=== PATIENT | female | born 1995 | race African-American/Black ===

== ENCOUNTER 2016-09-01 18:16 | Emergency (ER) | payer OTHER ==
[~2016-09-01] VITALS: Ht 170.2 cm; Wt 57.0 kg
[2016-09-02 00:15] LABS: BASOPHILS % 0.8 % (0.0-2.0); EOSINOPHILS % 1.3 % (0.0-5.0); HEMATOCRIT. 38.4 % (36.0-48.0); HEMOGLOBIN. 12.7 g/dL (12.0-16.0); LYMPHOCYTES % 32.8 % (20.0-50.0); MEAN CORPUSCULAR HEMOGLOBIN 29.8 pg (28.0-32.0); MEAN CORPUSCULAR VOLUME 89.9 fL (81.0-99.0); MEAN PLATELET VOLUME 7.9 fl (7.4-10.4); MONOCYTES % 8.2 % (2.0-8.0); NEUTROPHILS % 56.9 % (40.0-76.0); PLATELET 233 x1000/uL (130-400); RED BLOOD CELL COUNT 4.27 mill/uL (4.2-5.4); RED CELL DISTRIBUTION WIDTH 15.2 % (11.6-14.6)
[2016-09-02] MEDS ORDERED: SODIUM CHLORIDE 0.9% 1,000 ML IV ONE (00:30)
[2016-09-02] MEDS ORDERED: KETOROLAC 30MG/ML VIAL IV ONE (00:30)
[2016-09-02] MEDS ORDERED: KETOROLAC 60MG/2ML VIAL IM ONE (00:30)
[2016-09-02 01:04] LABS: CLARITY URINE CLEAR (CLEAR); COLOR URINE YELLOW (YELLOW); GLUCOSE URINE NEGATIVE (NEGATIVE); KETONES URINE NEGATIVE (NEGATIVE); LEUKOCYTE ESTERASE URINE 2+ (NEGATIVE); NITRITE URINE NEGATIVE (NEGATIVE); OCCULT BLOOD URINE NEGATIVE (NEGATIVE); PH URINE 6.5 (4.5-8.0); PROTEIN URINE NEGATIVE (NEGATIVE); SPECIFIC GRAVITY URINE 1.022 (1.005-1.030)
[2016-09-02] MEDS ORDERED: DICYCLOMINE HCL 10MG CAPSULE PO ONE (01:30)
[2016-09-02] MEDS ORDERED: MAGNESIUM CITRATE 300ML SOLUTION PO ONE (01:30)
[2016-09-02 03:15] VITALS: BP 119/66
== END 2016-09-02 03:15 | disposition home or self-care (01) ==
LOC: ER 18:16
DX: K59.00 Constipation, unspecified (principal); J45.909 Unspecified asthma, uncomplicated; F17.200 Nicotine dependence, unspecified, uncomplicated
CPT/HCPCS: 36415; 74000; 81001; 81025; 85025; 96361; 96374; 99285; J1885; J7030; Z7610

== ENCOUNTER 2019-03-14 20:11 | Emergency (ER) | payer OTHER ==
[~2019-03-14] VITALS: Ht 167.6 cm; Wt 78.0 kg
[2019-03-15] MEDS ORDERED: IPRATROPIUM BROMIDE (0.02%) 0.5MG/2.5ML NEB HHN STA (03:55)
[2019-03-15] MEDS ORDERED: ACETAMINOPHEN 325MG TABLET PO STA (03:55)
[2019-03-15] MEDS ORDERED: ALBUTEROL (0.083%) 2.5MG/3ML NEB HHN STA (03:55)
[2019-03-15] MEDS ORDERED: METHYLPREDNISOLONE SOD SUCC 125 MG/2 ML VIAL IM SCH (05:30)
[2019-03-15 06:18] LABS: CLARITY URINE CLOUDY (CLEAR); COLOR URINE YELLOW (YELLOW); KETONES URINE NEGATIVE (NEGATIVE); LEUKOCYTE ESTERASE URINE 2+ (NEGATIVE); NITRITE URINE NEGATIVE (NEGATIVE); OCCULT BLOOD URINE 3+ (NEGATIVE); PH URINE 5.5 (4.5-8.0); PROTEIN URINE NEGATIVE (NEGATIVE); SPECIFIC GRAVITY URINE 1.021 (1.005-1.030)
[2019-03-15 06:30] VITALS: BP 138/84
== END 2019-03-15 07:12 | disposition home or self-care (01) ==
LOC: ER 20:11
DX: J20.9 Acute bronchitis, unspecified (principal); M54.9 Dorsalgia, unspecified; N39.0 Urinary tract infection, site not specified; N92.1 Excessive and frequent menstruation with irregular cycle; J45.909 Unspecified asthma, uncomplicated; Z87.891 Personal history of nicotine dependence
CPT/HCPCS: 71045; 81003; 96372; 99284; J2930; J7611; Z7610

== ENCOUNTER 2019-04-20 15:42 | Emergency (ER) | payer OTHER ==
[~2019-04-20] VITALS: Ht 167.6 cm; Wt 74.8 kg
[2019-04-20 15:54] VITALS: BP 107/72
== END 2019-04-20 19:11 | disposition left against medical advice (07) ==
LOC: ER 15:42
DX: Z53.21 Procedure and treatment not carried out due to patient leaving prior to being seen by health care provider (principal); J45.909 Unspecified asthma, uncomplicated

== ENCOUNTER 2020-07-05 03:08 | Emergency (ER) | payer MEDICAID, OTHER ==
[~2020-07-05] VITALS: Ht 167.6 cm; Wt 73.0 kg
[2020-07-05] MEDS ORDERED: SODIUM CHLORIDE 0.9% 1,000 ML IV ONE (04:15)
[2020-07-05 04:27] LABS: BASOPHILS % 0.7 % (0.0-2.0); EOSINOPHILS % 4.5 % (0.0-5.0); HEMOGLOBIN. 12.6 g/dL (12.0-16.0); LYMPHOCYTES % 29.5 % (20.0-50.0); MEAN CORPUSCULAR HEMOGLOBIN 29.2 pg (28.0-32.0); MEAN CORPUSCULAR VOLUME 92.9 fL (81.0-99.0); MEAN PLATELET VOLUME 8.3 fl (7.4-10.4); MONOCYTES % 5.6 % (2.0-8.0); NEUTROPHILS % 59.7 % (40.0-76.0); PLATELET 278 x1000/uL (130-400); RED BLOOD CELL COUNT 4.31 mill/uL (4.2-5.4); RED CELL DISTRIBUTION WIDTH 15.5 % (11.6-14.6)
[2020-07-05 04:33] LABS: CHLORIDE 105 mEq/L (98-107)
[2020-07-05 04:44] LABS: B-HCG QUANTITATIVE < 1 mIU/mL (<3)
[2020-07-05 09:05] LABS: CLARITY URINE CLEAR (CLEAR); COLOR URINE YELLOW (YELLOW); KETONES URINE NEGATIVE (NEGATIVE); LEUKOCYTE ESTERASE URINE NEGATIVE (NEGATIVE); NITRITE URINE NEGATIVE (NEGATIVE); OCCULT BLOOD URINE 2+ (NEGATIVE); PROTEIN URINE NEGATIVE (NEGATIVE); SPECIFIC GRAVITY URINE 1.021 (1.005-1.030); UROBILINOGEN URINE 0.2 E.U./dL (0.2-1.0)
[2020-07-05] MEDS ORDERED: KETOROLAC 15MG/ML VIAL IV ONE (10:45)
[2020-07-05] MEDS ORDERED: NAPR500T7 MT (10:48)
[2020-07-05 11:23] VITALS: BP 133/84
== END 2020-07-05 11:25 | disposition home or self-care (01) ==
LOC: ER 03:08
DX: N93.9 Abnormal uterine and vaginal bleeding, unspecified (principal); R53.1 Weakness; R10.30 Lower abdominal pain, unspecified; J45.909 Unspecified asthma, uncomplicated; E86.0 Dehydration; Z79.899 Other long term (current) drug therapy
CPT/HCPCS: 36415; 76856; 80053; 81003; 81025; 84702; 85025; 86850; 86900; 86901; 96361; 96374; 99284; J1885; J7030

== ENCOUNTER 2021-02-01 09:53 | Emergency (ER) | payer MEDICAID, OTHER ==
[~2021-02-01] VITALS: Ht 167.6 cm; Wt 79.0 kg
[~2021-02-01 09:53] MED LIST: NAPR500T7 MT
[2021-02-01 10:21] VITALS: BP 146/97
[2021-02-01] MEDS ORDERED: ONDANSETRON HCL 4MG/2ML INJ IV STA (10:24)
[2021-02-01] MEDS ORDERED: MORPHINE SULFATE 4 MG/ML CPJ (NOT FOR IM USE) IV STA (10:24)
[2021-02-01] MEDS ORDERED: SODIUM CHLORIDE 0.9% 1,000 ML IV ONE (10:30)
[2021-02-01 11:31] LABS: BASOPHILS % 0.5 % (0.0-2.0); EOSINOPHILS % 3.9 % (0.0-5.0); HEMATOCRIT. 37.6 % (36.0-48.0); HEMOGLOBIN. 12.3 g/dL (12.0-16.0); LYMPHOCYTES % 25.6 % (20.0-50.0); MEAN CORPUSCULAR HEMOGLOBIN 29.1 pg (28.0-32.0); MEAN CORPUSCULAR VOLUME 88.8 fL (81.0-99.0); MONOCYTES % 6.7 % (2.0-8.0); NEUTROPHILS % 63.3 % (40.0-76.0); PLATELET 345 x1000/uL (130-400); RED BLOOD CELL COUNT 4.24 mill/uL (4.2-5.4); RED CELL DISTRIBUTION WIDTH 15.3 % (11.6-14.6)
[2021-02-01 11:34] LABS: CLARITY URINE TURBID (CLEAR); COLOR URINE RED (YELLOW); KETONES URINE TRACE (NEGATIVE); LEUKOCYTE ESTERASE URINE 2+ (NEGATIVE); NITRITE URINE NEGATIVE (NEGATIVE); OCCULT BLOOD URINE 3+ (NEGATIVE); PH URINE 6.5 (4.5-8.0); PROTEIN URINE 1+ (NEGATIVE); SPECIFIC GRAVITY URINE 1.014 (1.005-1.030)
[2021-02-01 11:38] LABS: CHLORIDE 108 mEq/L (98-107)
[2021-02-01 11:44] LABS: HCG SCREEN NEGATIVE
[2021-02-01] MEDS ORDERED: IBUP-2028 MT (17:16)
[2021-02-01] MEDS ORDERED: KETOROLAC 60MG/2ML VIAL IM ONE (17:30)
== END 2021-02-01 18:02 | disposition home or self-care (01) ==
LOC: ER 09:53
DX: N93.9 Abnormal uterine and vaginal bleeding, unspecified (principal); D21.9 Benign neoplasm of connective and other soft tissue, unspecified; R10.30 Lower abdominal pain, unspecified; R11.2 Nausea with vomiting, unspecified; R53.83 Other fatigue; Z79.899 Other long term (current) drug therapy
CPT/HCPCS: 36415; 76830; 76856; 80053; 80076; 81003; 81025; 82270; 83690; 84703; 85025; 99284; J1885; J7030

== ENCOUNTER 2021-06-21 20:02 | Emergency (ER) | payer MEDICAID, OTHER ==
[~2021-06-21] VITALS: Ht 170.2 cm; Wt 95.0 kg
[~2021-06-21 20:02] MED LIST changes: +IBUP-2028 MT
[2021-06-21] MEDS ORDERED: LORAZEPAM 2MG/ML CPJ IM STA (20:23)
[2021-06-21] MEDS ORDERED: PHENOBARBITAL INJ 260 MG in SODIUM CHLORIDE 0.9% 100 ML IV ONE (20:45)
[2021-06-21 21:15] LABS: BASOPHILS % 0.6 % (0.0-2.0); EOSINOPHILS % 4.3 % (0.0-5.0); HEMATOCRIT. 39.2 % (36.0-48.0); HEMOGLOBIN. 12.9 g/dL (12.0-16.0); LYMPHOCYTES % 31.1 % (20.0-50.0); MEAN CORPUSCULAR HEMOGLOBIN 28.9 pg (28.0-32.0); MEAN CORPUSCULAR VOLUME 87.4 fL (81.0-99.0); MEAN PLATELET VOLUME 7.8 fl (7.4-10.4); MONOCYTES % 7.7 % (2.0-8.0); NEUTROPHILS % 56.3 % (40.0-76.0); PLATELET 342 x1000/uL (130-400); RED BLOOD CELL COUNT 4.49 mill/uL (4.2-5.4); RED CELL DISTRIBUTION WIDTH 15.8 % (11.6-14.6)
[2021-06-21 21:23] LABS: CHLORIDE 109 mEq/L (98-107)
[2021-06-21 21:26] LABS: HCG SCREEN NEGATIVE
[2021-06-21] MEDS ORDERED: PHENOBARBITAL SODIUM 130MG/ML 1ML IV STA (22:55)
[2021-06-21] MEDS ORDERED: PHENOBARBITAL INJ 260 MG in SODIUM CHLORIDE 0.9% 100 ML IV SCH (23:15)
[2021-06-21] MEDS ORDERED: PHENOBARBITAL INJ 260 MG in SODIUM CHLORIDE 0.9% 100 ML IV NR (23:30)
[2021-06-22 02:00] VITALS: BP 126/87
[2021-06-22] MEDS ORDERED: LORA-250 PO (02:17)
[2021-07-03] MEDS ORDERED: LEVE750T4 PO (22:12)
== END 2021-06-22 02:41 | disposition home or self-care (01) ==
LOC: ER 20:02
DX: R55 Syncope and collapse (principal); M25.552 Pain in left hip
CPT/HCPCS: 36415; 70450; 72125; 80048; 84703; 85025; 93005; 96365; 96366; 96372; 99285; J2060; J2560; J7050

== ENCOUNTER 2021-06-23 05:53 | Emergency (ER) | payer OTHER ==
[~2021-06-23] VITALS: Ht 167.6 cm; Wt 70.0 kg
[2021-06-23 05:56] VITALS: BP 150/78
[2021-07-03] MEDS ORDERED: LEVE750T4 PO (22:12)
== END 2021-06-23 06:42 | disposition left against medical advice (07) ==
LOC: ER 05:53
DX: Z53.21 Procedure and treatment not carried out due to patient leaving prior to being seen by health care provider (principal); J45.909 Unspecified asthma, uncomplicated

== ENCOUNTER 2021-07-13 10:44 | Emergency (ER) | payer OTHER ==
[~2021-07-13] VITALS: Ht 167.6 cm; Wt 69.0 kg
[~2021-07-13 10:44] MED LIST changes: +KEPP500 PO; +LEVE750T4 PO
[2021-07-13] MEDS ORDERED: LEVETIRACETAM 1000MG PREMIX 100 ML IV ONE (11:00)
[2021-07-13 11:15] VITALS: BP 118/75
== END 2021-07-13 11:42 | disposition left against medical advice (07) ==
LOC: ER 10:44
DX: R56.9 Unspecified convulsions (principal); J45.909 Unspecified asthma, uncomplicated
CPT/HCPCS: 99283

== ENCOUNTER 2021-07-29 00:33 | Emergency (ER) | payer OTHER ==
[~2021-07-29] VITALS: Ht 165.1 cm; Wt 88.0 kg
[~2021-07-29 00:33] MED LIST changes: +LORA-250 PO
[2021-07-29 01:00] VITALS: BP 123/84
[2021-07-29] MEDS ORDERED: LEVETIRACETAM 500MG PREMIX 100 ML IV ONE (01:30)
[2021-07-29] MEDS ORDERED: BO1 TP (05:27)
== END 2021-07-29 01:24 | disposition left against medical advice (07) ==
LOC: ER 00:33
DX: R56.9 Unspecified convulsions (principal); J45.909 Unspecified asthma, uncomplicated; I10 Essential (primary) hypertension
CPT/HCPCS: 99283

== ENCOUNTER 2021-07-29 03:00 | Emergency (ER) | payer OTHER ==
[~2021-07-29] VITALS: Ht 170.2 cm; Wt 68.0 kg
[2021-07-29 03:07] VITALS: BP 160/82
[2021-07-29] MEDS ORDERED: LIDOCAINE HCL/EPINEPHRINE 1%-EPI 1:100,000 20 ML VIAL INFIL ONE (04:00)
[2021-07-29] MEDS ORDERED: TETANUS, DIPHTHERIA, PERTUSSIS VAC/PF 0.5ML (>10YR OLD) IM ONE (04:00)
[2021-07-29] MEDS ORDERED: ACETAMINOPHEN 325MG TABLET PO ONE (04:00)
[2021-07-29] MEDS ORDERED: BACITRACIN ZINC OINT UDPKT TOP ONE (04:00)
[2021-07-29] MEDS ORDERED: BO1 TP (05:27)
== END 2021-07-29 06:01 | disposition home or self-care (01) ==
LOC: ER 03:00
DX: S61.511A Laceration without foreign body of right wrist, initial encounter (principal); S61.411A Laceration without foreign body of right hand, initial encounter; S60.811A Abrasion of right wrist, initial encounter; S60.511A Abrasion of right hand, initial encounter; M79.641 Pain in right hand; J45.909 Unspecified asthma, uncomplicated; I10 Essential (primary) hypertension; R56.9 Unspecified convulsions; W25.XXXA Contact with sharp glass, initial encounter; Y93.89 Activity, other specified; Y92.89 Other specified places as the place of occurrence of the external cause; Y99.8 Other external cause status
CPT/HCPCS: 12002; 73130; 90471; 90715; 99283; J3490; 12001

== ENCOUNTER 2021-08-10 09:36 | Emergency (ER) | payer OTHER ==
[~2021-08-10] VITALS: Ht 167.6 cm; Wt 87.0 kg
[~2021-08-10 09:36] MED LIST changes: +BO1 TP; -LORA-250 PO
[2021-08-10 09:50] VITALS: BP 114/56
[2021-08-15] MEDS ORDERED: PHEN100C4 MT (10:18)
== END 2021-08-10 11:28 | disposition home or self-care (01) ==
LOC: ER 09:36
DX: Z48.02 Encounter for removal of sutures (principal); J45.909 Unspecified asthma, uncomplicated; I10 Essential (primary) hypertension; Z86.59 Personal history of other mental and behavioral disorders
CPT/HCPCS: 99281; Z7610

== ENCOUNTER 2021-08-11 16:35 | Inpatient (IN) | payer MEDICAID, OTHER ==
[~2021-08-11] VITALS: Ht 167.6 cm; Wt 85.7 kg
[2021-08-11] MEDS ORDERED: LEVETIRACETAM 1000MG PREMIX 100 ML IV ONE (17:15)
[2021-08-11] MEDS ORDERED: SODIUM CHLORIDE 0.9% 1,000 ML IV ONE (17:15)
[2021-08-11 17:41] LABS: BASOPHILS % 0.8 % (0.0-2.0); EOSINOPHILS % 2.7 % (0.0-5.0); HEMATOCRIT. 38.4 % (36.0-48.0); HEMOGLOBIN. 12.7 g/dL (12.0-16.0); LYMPHOCYTES % 28.8 % (20.0-50.0); MEAN CORPUSCULAR HEMOGLOBIN 28.7 pg (28.0-32.0); MEAN CORPUSCULAR VOLUME 87.1 fL (81.0-99.0); MEAN PLATELET VOLUME 7.9 fl (7.4-10.4); MONOCYTES % 6.1 % (2.0-8.0); NEUTROPHILS % 61.6 % (40.0-76.0); PLATELET 355 x1000/uL (130-400); RED BLOOD CELL COUNT 4.41 mill/uL (4.2-5.4)
[2021-08-11 18:06] LABS: HCG SCREEN NEGATIVE
[2021-08-11 18:08] LABS: CHLORIDE 106 mEq/L (98-107)
[2021-08-11 18:15] LABS: ETHANOL BLOOD < 10 mg/dL
[2021-08-11] MEDS ORDERED: KETOROLAC 30MG/ML VIAL IV ONE (18:45)
[2021-08-11] MEDS ORDERED: IPRATROPIUM/ALBUTEROL 0.5-3(2.5)MG/3ML NEB NEB PRN (22:30)
[2021-08-11] MEDS ORDERED: CLONIDINE 0.1MG TABLET PO PRN (22:30)
[2021-08-11] MEDS ORDERED: KETOROLAC 15MG/ML VIAL IV PRN (22:30)
[2021-08-11] MEDS ORDERED: ONDANSETRON HCL 4MG/2ML INJ IV PRN (22:30)
[2021-08-11] MEDS ORDERED: GUAIFENESIN 200MG/10ML SUGAR FREE UDC PO PRN (22:30)
[2021-08-11] MEDS ORDERED: MAGNESIUM/ALUMINUM HYDROXIDE/SIMETHICONE 30ML UDC PO PRN (22:30)
[2021-08-11] MEDS ORDERED: DOCUSATE SODIUM 100MG CAPSULE PO PRN (22:30)
[2021-08-11] MEDS ORDERED: LORAZEPAM 2MG/ML CPJ IV PRN (22:30)
[2021-08-11] MEDS ORDERED: NA PHOS,M-B/NA PHOS,DI-BA ENEMA 118ML PR PRN (22:30)
[2021-08-11] MEDS ORDERED: ZOLPIDEM TARTRATE 5MG TABLET PO PRN (22:30)
[2021-08-11] MEDS ORDERED: ACETAMINOPHEN 325MG TABLET PO PRN (22:30)
[2021-08-12] MEDS ORDERED: LEVE1000 PO (04:54)
[2021-08-12 05:13] VITALS: BP 129/72
[2021-08-12 07:25] LABS: BASOPHILS % 0.6 % (0.0-2.0); EOSINOPHILS % 3.2 % (0.0-5.0); HEMATOCRIT. 33.4 % (36.0-48.0); HEMOGLOBIN. 11.2 g/dL (12.0-16.0); LYMPHOCYTES % 36.2 % (20.0-50.0); MEAN CORPUSCULAR VOLUME 86.5 fL (81.0-99.0); MEAN PLATELET VOLUME 8.4 fl (7.4-10.4); MONOCYTES % 8.6 % (2.0-8.0); NEUTROPHILS % 51.4 % (40.0-76.0); PLATELET 307 x1000/uL (130-400); RED BLOOD CELL COUNT 3.86 mill/uL (4.2-5.4); RED CELL DISTRIBUTION WIDTH 14.5 % (11.6-14.6)
[2021-08-12 07:44] LABS: CREATINE KINASE 257 IU/L (26-192); CREATINE KINASE MB FRACTION < 1.0 ng/mL (0.5-3.6)
[2021-08-12 08:00] VITALS: BP 130/68
[2021-08-12 08:01] LABS: FOLIC ACID (FOLATE) SERUM 16.2 ng/mL (>5.38)
[2021-08-12 08:45] LABS: CHLORIDE 110 mEq/L (98-107)
[2021-08-12 08:55] LABS: PHOSPHORUS 3.3 mg/dL (2.5-4.9)
[2021-08-12] MEDS: LEVETIRACETAM 500MG TABLET PO SCH ×2 (09:28→21:15)
[2021-08-12] MEDS: ENOXAPARIN 40MG/0.4ML SYR SUBCUT SCH (09:28)
[2021-08-12] MEDS: FAMOTIDINE 20MG TABLET PO SCH ×2 (09:28→21:15)
[2021-08-12 12:00] VITALS: BP 120/81
[2021-08-12 16:00] VITALS: BP 130/73
[2021-08-12 16:31] LABS: CREATINE KINASE 284 IU/L (26-192); CREATINE KINASE MB FRACTION < 1.0 ng/mL (0.5-3.6)
[2021-08-12] MEDS: ACETAMINOPHEN 325MG TABLET PO PRN (19:38)
[2021-08-12 20:00] VITALS: BP 134/74
[2021-08-13] VITALS: BP 119/59
[2021-08-13 04:00] VITALS: BP 114/80
[2021-08-13 08:00] VITALS: BP 113/63
[2021-08-13] MEDS: LEVETIRACETAM 500MG TABLET PO SCH ×2 (08:52→20:50)
[2021-08-13] MEDS: FAMOTIDINE 20MG TABLET PO SCH ×2 (08:52→20:50)
[2021-08-13] MEDS: ENOXAPARIN 40MG/0.4ML SYR SUBCUT SCH (08:52)
[2021-08-13] MEDS ORDERED: PHENYTOIN SODIUM 1,000 MG in SODIUM CHLORIDE 0.9% 100 ML IV NR (11:30)
[2021-08-13 12:00] VITALS: BP 123/69
[2021-08-13 16:00] VITALS: BP 123/72
[2021-08-13 20:02] VITALS: BP 122/75
[2021-08-14] VITALS: BP 119/80
[2021-08-14 04:00] VITALS: BP 124/64
[2021-08-14 08:00] VITALS: BP 110/59
[2021-08-14] MEDS: LEVETIRACETAM 500MG TABLET PO SCH ×2 (08:51→21:25)
[2021-08-14] MEDS: ACETAMINOPHEN 325MG TABLET PO PRN (08:51)
[2021-08-14] MEDS: FAMOTIDINE 20MG TABLET PO SCH ×2 (08:51→21:25)
[2021-08-14] MEDS: ENOXAPARIN 40MG/0.4ML SYR SUBCUT SCH (08:52)
[2021-08-14 12:00] VITALS: BP 121/77
[2021-08-14] MEDS: PHENYTOIN SODIUM EXTENDED 100MG CAPSULE PO SCH ×2 (14:14→21:25)
[2021-08-14 16:00] VITALS: BP 124/73
[2021-08-14 20:00] VITALS: BP 130/68
[2021-08-15] VITALS: BP 105/62
[2021-08-15 04:00] VITALS: BP 107/69
[2021-08-15] MEDS: PHENYTOIN SODIUM EXTENDED 100MG CAPSULE PO SCH (05:57)
[2021-08-15 08:00] VITALS: BP 116/66
[2021-08-15] MEDS: ENOXAPARIN 40MG/0.4ML SYR SUBCUT SCH (08:26)
[2021-08-15] MEDS: FAMOTIDINE 20MG TABLET PO SCH (08:27)
[2021-08-15] MEDS: LEVETIRACETAM 500MG TABLET PO SCH (08:28)
[2021-08-15] MEDS ORDERED: PHEN100C4 MT (10:18)
[2021-08-15 10:33] VITALS: BP 116/66
== END 2021-08-15 11:30 | disposition home or self-care (01) | DRG 53 ==
LOC: ER 16:35 → MICUSO 18:55 → EDBEDREQTM 19:02 → EDBEDREQ 19:02 → 8WST 08-12 04:42
PROVIDERS: ADMIT Internal Medicine; ATTEND Internal Medicine
DX: G40.909 Epilepsy, unspecified, not intractable, without status epilepticus (principal); J96.01 Acute respiratory failure with hypoxia; G92.8 Other toxic encephalopathy; I50.23 Acute on chronic systolic (congestive) heart failure; E11.9 Type 2 diabetes mellitus without complications; E78.00 Pure hypercholesterolemia, unspecified; I11.0 Hypertensive heart disease with heart failure; Z21 Asymptomatic human immunodeficiency virus [HIV] infection status; R77.8 Other specified abnormalities of plasma proteins; J44.9 Chronic obstructive pulmonary disease, unspecified; Z79.4 Long term (current) use of insulin
CPT/HCPCS: 36415; 70551; 72070; 72100; 80053; 80320; 82550; 82553; 82607; 82746; 83540; 83550; 83735; 84100; 84443; 84484; 84703; 85025; 93005; 97162; 99291; J1165; J1650; J1885; J1953; J2060; J7030; J7050; G0480

== ENCOUNTER 2021-09-20 20:18 | Emergency (ER) | payer MEDICAID ==
[~2021-09-20] VITALS: Ht 167.6 cm; Wt 83.2 kg
[~2021-09-20 20:18] MED LIST changes: -BO1 TP; -IBUP-2028 MT; -KEPP500 PO; +LEVE1000 PO; -LEVE750T4 PO; -NAPR500T7 MT; +PHEN100C4 MT
[2021-09-20 22:45] VITALS: BP 135/85
== END 2021-09-20 22:35 | disposition home or self-care (01) ==
LOC: ER 20:18
DX: T14.8XXA Other injury of unspecified body region, initial encounter (principal); I10 Essential (primary) hypertension; J45.909 Unspecified asthma, uncomplicated; G40.909 Epilepsy, unspecified, not intractable, without status epilepticus; W57.XXXA Bitten or stung by nonvenomous insect and other nonvenomous arthropods, initial encounter; Y93.89 Activity, other specified; Y92.89 Other specified places as the place of occurrence of the external cause
CPT/HCPCS: 99281

== ENCOUNTER 2022-02-10 12:03 | Emergency (ER) | payer MEDICAID | END 2022-02-10 14:39 | disposition home or self-care (01) | LOC: ER 12:03 | DX: Z53.21 Procedure and treatment not carried out due to patient leaving prior to being seen by health care provider (principal) ==

== ENCOUNTER 2022-02-10 15:14 | Emergency (ER) | payer MEDICAID ==
[~2022-02-10] VITALS: Ht 170.2 cm; Wt 83.0 kg
[2022-02-10 15:30] VITALS: BP 105/72
== END 2022-02-10 18:15 | disposition left against medical advice (07) ==
LOC: ER 15:14
DX: Z53.21 Procedure and treatment not carried out due to patient leaving prior to being seen by health care provider (principal); R73.9 Hyperglycemia, unspecified; J45.909 Unspecified asthma, uncomplicated; I10 Essential (primary) hypertension; R56.9 Unspecified convulsions
CPT/HCPCS: 82962